=== PATIENT | female | born 1945 | race Caucasian/White ===

== ENCOUNTER 2017-05-31 09:43 | Emergency (ER) | payer MEDICARE, OTHER ==
[~2017-05-31] VITALS: Ht 165.1 cm; Wt 91.0 kg
[~2017-05-31 09:43] MED LIST: ALPR0.5T99 PO; AMBI10TA PO; ESTR2TAB PO; LEVO.05 PO; NUCY50TA PO; ROSU20 PO
[2017-05-31 09:50] VITALS: BP 144/85; PULSE 97; RESP 16; TEMP 97.9; O2SAT 98
[2017-05-31] MEDS ORDERED: ALPR0.5T3 PO (10:05)
[2017-05-31] MEDS ORDERED: ACYC800T PO (10:05)
[2017-05-31] MEDS ORDERED: ATOR10TA15 PO (10:05)
[2017-05-31] MEDS ORDERED: FURO20TA PO (10:05)
[2017-05-31] MEDS ORDERED: ZOLP10TA3 PO (10:05)
[2017-05-31] MEDS ORDERED: LEVO50TA4 PO (10:05)
[2017-05-31] MEDS ORDERED: TRAM50TA PO (10:05)
[2017-05-31] MEDS ORDERED: AMIT25TA9 PO (10:05)
[2017-05-31] MEDS ORDERED: HYDR500C PO (10:05)
[2017-05-31] MEDS ORDERED: GABA300C5 PO (10:05)
[2017-05-31] MEDS ORDERED: ESTR0.5T PO (10:05)
[2017-05-31] MEDS ORDERED: HYDR-3516 PO (10:26)
--- NOTE | 2017-05-31 10:26 | PD ---
HPI Chief Complaint: Musculoskeletal Complaint Time Seen by Provider: 10:18 Travel History International Travel<30 days: No Contact w/Intl Traveler<30days: No Traveled to known affect area: No History of Present Illness HPI Patient presents with complaints of musculoskeletal pain that started in the left scapular region approximately week ago and has since moved into the trapezius. Denies any trauma misstep or fall. Admits to chronic cervical degenerative disc disease that has previously been worked up. Patient states she recently completed physical therapy for a cervical spur. Denies any new chest pain shortness of breath urinary or bowel symptoms. PFSH Past Medical History Arthritis: Yes Blood Disorders: No Anxiety: Yes Depression: Yes Cancer: No Cardiac Catheterization: Yes Cardiovascular Problems: Yes High Cholesterol: Yes Chest Pain: Yes Coronary Artery Disease: Yes Diminished Hearing: No Endocrine: No Gastrointestinal Disorders: Yes GERD: Yes Genitourinary: Yes Headaches: Yes Immune Disorder: No Musculoskeletal: Yes Neurologic: Yes Reproductive: No Respiratory: Yes Immunizations Current: No Seizures: Yes Thyroid Disease: Yes Influenza Vaccination: Yes ?: Not Past Surgical History Cholecystectomy: Yes Coronary Stent: Yes (08/2009) Genitourinary Surgery: Yes (bladder tuck/hemorroids) Hysterectomy: Yes Tonsillectomy: Yes Social History Alcohol Use: No Tobacco Use: No Substance Use: No Allergies-Medications (Allergen,Severity, Reaction): Coded Allergies: Sulfa (Sulfonamide Antibiotics) (Unverified Allergy, Severe, Hives, ) morphine (Unverified Allergy, Severe, Itching, 05/31/17) sumatriptan (Verified Allergy, Unknown, 05/31/17) Reported Meds & Prescriptions Reported Meds & Active Scripts Active Reported Acyclovir 800 Mg Tab 800 Mg PO BID Furosemide 20 Mg Tab 20 Mg PO DAILY Estradiol 0.5 Mg Tab 0.25 Mg PO DAILY Gabapentin 300 Mg Cap 300 Mg PO TID Amitriptyline (Amitriptyline HCl) 25 Mg Tab 25 Mg PO HS Levothyroxine (Levothyroxine Sodium) 50 Mcg Tab 50 Mcg PO DAILY Zolpidem (Zolpidem Tartrate) 10 Mg Tab 10 Mg PO HS PRN Atorvastatin (Atorvastatin Calcium) 10 Mg Tab 10 Mg PO HS Tramadol (Tramadol HCl) 50 Mg Tab 100 Mg PO Q8HR PRN Hydrea (Hydroxyurea) 500 Mg Cap 500 Mg PO DAILY Alprazolam 0.5 Mg Tab 0.5 Mg PO Q8H PRN Review of Systems General / Constitutional: No: Fever Eyes: No: Visual changes HENT: No: Headaches Cardiovascular: No: Chest Pain or Discomfort Respiratory: No: Shortness of Breath Gastrointestinal: No: Abdominal Pain Genitourinary: No: Dysuria Musculoskeletal: Positive: Myalgias, Arthralgias, Cramping, Pain Skin: No Rash Neurologic: No: Weakness Psychiatric: No: Depression Endocrine: No: Polydipsia Hematologic/Lymphatic: No: Easy Bruising Physical Exam Narrative GENERAL: Well-nourished, well-developed patient. SKIN: Focused skin assessment warm/dry. HEAD: Normocephalic. EYES: No scleral icterus. No injection or drainage. NECK: Supple, trachea midline. No JVD or lymphadenopathy. CARDIOVASCULAR: Regular rate and rhythm without murmurs, gallops, or rubs. RESPIRATORY: Breath sounds equal bilaterally. No accessory muscle use. Palpation of the left scapular region elicits pain as well as in the left trapezius. Neck with good range of motion and without midline tenderness. GASTROINTESTINAL: Abdomen soft, non-tender, nondistended. MUSCULOSKELETAL: No cyanosis, or edema. BACK: Nontender without obvious deformity. No CVA tenderness. Data Data Last Documented VS Vital Signs Date Time Temp Pulse Resp B/P (MAP) Pulse Ox O2 Delivery O2 Flow Rate FiO2 05/31/17 09:50 97.9 97 16 144/85 (104) 98 Orders Orders Ketorolac Inj (Toradol Inj) (05/31/17 10:30) [facility] Medical Decision Making Medical Screen Exam Complete: Yes Emergency Medical Condition: Yes Differential Diagnosis Muscle cramps, myalgias, arthritis, cervical degenerative disc disease, left shoulder after arthritis Narrative Course Assessment and plan was discussed with patient and at bedside. Diagnosis Primary Impression: Muscle spasm Patient Instructions: General Instructions Additional Instructions: Encourage nonsteroidal anti-inflammatories warm heat gentle stretching and strengthening and massage. Discussed home remedies for muscle cramps including tonic water with quinine and pickle juice. Follow-up with PCP. Return to emergency with any onset of new symptoms. Med/Other Pt SpecificInfo: Prescription(s) given Scripts Hydrocodone-Acetaminophen (Hydrocodone-Acetaminophen) 5-325 mg Tab 1 TAB PO Q4H Y for PAIN, #15 TAB 0 Refills Prov: Tereso Conti MD 05/31/17 Disposition: 01 DISCHARGE HOME Condition: Good Tereso Conti MD May 31, 2017 10:26
[2017-05-31] MEDS ORDERED: KETOROLAC TROMETHAMINE 60 MG/2 ML (IM) VIAL IM ONE (10:30)
== END 2017-05-31 10:50 | disposition home or self-care (01) ==
LOC: PHED 09:43
DX: M62.838 Other muscle spasm (principal)
CPT/HCPCS: 96372; 99284; J1885